=== PATIENT | male | born 1970 | race Caucasian/White ===

== ENCOUNTER → 2016-11-05 15:49 | Outpatient (CLI) | payer BC ==
[2016-11-05 18:16] LABS: THYROID STIMULATING HORMONE 1.18 uIU/mL (0.36-3.74)
== END | disposition home or self-care (01) ==
LOC: D.LABREF 15:49
PROVIDERS: Student in an Organized Health Care Education/Training Program
DX: R53.82 Chronic fatigue, unspecified (principal); R63.4 Abnormal weight loss